=== PATIENT | female | born 2000 | race Caucasian/White ===

== ENCOUNTER 2020-07-26 13:55 | Emergency (ER) | payer OTHER ==
[~2020-07-26] VITALS: Ht 152.4 cm; Wt 54.4 kg
--- NOTE | 2020-07-26 14:13 | NUR ---
Pt had lac on right knee Monday, sutured. Wound has started leaking sero-sanguinous liquid in last 36-48 hours, pt states swelling has decreased and skin color has improved since, pt already on A/Bx. Some pain on palp.
[2020-07-26] MEDS ORDERED: VANCOMYCIN IV 1,000 MG in IV DEXTROSE 5% 250 ML IV ONE (14:30)
[2020-07-26] MEDS ORDERED: VANCOMYCIN IV 200 ML ONE (14:36)
[2020-07-26] MEDS ORDERED: diphenhydrAMINE 50 MG/1 ML VIAL ONE (15:09)
[2020-07-26] MEDS ORDERED: diphenhydrAMINE 50 MG/1 ML VIAL IV ONE (15:15)
[2020-07-26] MEDS ORDERED: MICO15CR9 VG (15:58)
[2020-07-26] MEDS ORDERED: SULF1TAB48 PO (15:58)
[2020-07-26] MEDS ORDERED: NEOMY/BACITRA/POLYMYXIN B OINT UD PACKET TP ONE (16:39)
--- NOTE | 2020-07-26 16:56 | NUR ---
expressed some drainage from wound which was oozing out, pus w/sero-sanguinous fluid. Bandaged wound w/non-adhering dressing. Removed IV intact, site okay, bandaged. Gave pt RX and d/c instructions, pt verbalized understanding.
[2020-07-26 17:04] VITALS: BP 103/73
== END 2020-07-26 17:05 | disposition home or self-care (01) ==
LOC: ER 13:55
DX: S81.011D Laceration without foreign body, right knee, subsequent encounter (principal); L08.9 Local infection of the skin and subcutaneous tissue, unspecified; X58.XXXD Exposure to other specified factors, subsequent encounter; R60.0 Localized edema; Z88.1 Allergy status to other antibiotic agents
CPT/HCPCS: 87070; 96365; 96366; 96375; 99284; J1200; J3370; A4663